=== PATIENT | female | born 1985 | race Caucasian/White ===

== ENCOUNTER 2019-08-12 18:47 | Emergency (ER) | payer BC, OTHER ==
[2019-08-12 18:51] VITALS: BP 144/101
--- OUTSIDE RECORDS SUMMARY | 2019-08-12 18:57 | XMS REPORT | Summary of Care ---
:1985 Author Organization [facility] Address [address] [facility] SAMMI Mcconnell [address] Care Team Providers Name Role Phone None, Naylor Primary Care Provider Unavailable Reason for Visit Reason Comments Medication Refill wants to discuss adderall dose Encounter Details Date Type Department Care Team Description 07/26/2019 Office Visit Matthew Dill Seth, Attention deficit hyperactivity disorder (ADHD), predominantly inattentive type (Primary Dx); Practice FELICIA Busby Encounter for initial prescription of contraceptive pills [address] [place], [place] [id number] [place] [address] [phone] Allergies No Known Allergiesdocumented as of this encounter (statuses as of 07/26/2019) Medications Medication Sig Dispensed Refills Start Date End Date Status VALACYCLOVIR HCL PO Take by 0 Active mouth. escitalopram TAKE 1 90 Tab 1 05/10/2019 Active (LEXAPRO) 10 MG TABLET BY Oral Tab MOUTH EVERY DAY buPROPion XL TAKE 1 90 Tab 3 05/31/2019 Active (WELLBUTRIN XL) 150 TABLET BY MG Oral TABLET SR MOUTH EVERY 24 HR 24 hour DAY tabletIndications: Anxiety and depression trazodone (DESYREL) TAKE 3 270 Tab 2 07/09/2019 Active 50 MG Oral TABLETS BY TabIndications: MOUTH EVERY Insomnia, NIGHT AT unspecified type BEDTIME amphetamine-dextroa Take 1 Cap 30 Cap 0 07/26/2019 Active mphetamine by mouth (ADDERALL XR) 30 MG EVERY Oral CAPSULE SR 24 MORNING. Max HRIndications: Daily Attention deficit Amount: 30 hyperactivity mg. disorder (ADHD), predominantly inattentive type Desogestrel-Ethinyl Take 1 Tab 28 Tab 2 07/26/2019 Active Estradiol (APRI) by mouth 0.15-30 MG-MCG Oral DAILY. TabIndications: Encounter for initial prescription of contraceptive pills nicotine Place 21 mg 0 Discontinued transdermal onto skin 0 (Therapy patch-daily DAILY. Completed) (NICODERM) 21 MG/24HR Transdermal PATCH 24 HR amphetamine-dextroa Take 1 Cap 30 Cap 0 06/14/2019 Discontinued mphetamine by mouth 0 (Reorder) (ADDERALL XR) 15 MG DAILY. Max Oral CAPSULE SR 24 Daily HRIndications: Amount: 15 Attention deficit mg. hyperactivity disorder (ADHD), predominantly inattentive type documented as of this encounter (statuses as of 07/26/2019) Active Problems Problem Noted Date Attention deficit hyperactivity disorder (ADHD), predominantly inattentive 09/2019 type Abnormal Pap smear of cervix 04/17/2019 Overview: Sees Dr. Molina. Anxiety and depression 04/17/2019 Insomnia 04/17/2019 documented as of this encounter (statuses as of 07/26/2019) Social History Tobacco Use Types Packs/Day Years Used Date Former Smoker Cigarettes 0 02/15/2007 - 02/15/2019 Smokeless Tobacco: Never Used Alcohol Use Drinks/Week oz/Week Comments Yes Alcohol Habits Answer Date Recorded How often do you have a drink containing alcohol? 2-4 times a month 2018 How many drinks containing alcohol do you have on a 5 or 6 04/17/2019 typical day when you are drinking? How often do you have six or more drinks on one Not asked occasion? Sex Assigned at Date Recorded Not on file documented as of this encounter Last Filed Vital Signs Vital Sign Reading Time Taken Comments Blood Pressure 118/78 07/26/2019 3:27 PM EST Pulse 80 07/26/2019 3:27 PM EST Temperature - - Respiratory Rate - - Oxygen Saturation 96% 07/26/2019 3:27 PM EST Inhaled Oxygen Concentration - - Weight 56.7 kg (125 lb) 07/26/2019 3:27 PM EST Height 172.7 cm (5' 8") 07/26/2019 3:27 PM EST Body Mass Index 19.01 07/26/2019 3:27 PM EST documented in this encounter Patient Instructions Patient InstructionsQi Ann FNP - 07/26/2019 3:20 PM ESTIncrease adderall to 30 mg daily Follow up in a month with Audrey Fisher NP To establish, for med refill and for physical and pap smear. Schedule for 40-60 minutes. documented in this encounter Progress Notes Qi Ann FNP - 07/26/2019 3:20 PM EST PATIENT: Jeny Dutton : 1985 DATE OF SERVICE: 07/26/2019 Chief Complaint Patient presents with ? Medication Refill wants to discuss adderall dose SUBJECTIVE: Jeny Dutton is a 33-y.o. female who is here for follow up of anxiety, depression and ADHD. She feels meds are all helping but may need higher dose of adderall. She tried a double dose and felt much more focused and organized. She denies any abuse or diversion. She would like to go back on oral contraceptive pills. She has taken in the past without problems.Having menses now. 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 Molina and was told tohave repeat in a year. Last pap reportedly normal. She would like to have next pap done here now and her oral contraceptive pills prescribed here. Patient Active Problem List Diagnosis Date Noted ? Attention deficit hyperactivity disorder (ADHD), predominantly inattentive type 07/26/2019 ? Abnormal Pap smear of cervix 04/17/[address] Molina. ? Anxiety and depression 04/17/2019 ? Insomnia 04/17/2019 Current Outpatient Medications Medication Sig ? amphetamine-dextroamphetamine (ADDERALL XR) 30 MG Oral CAPSULE SR 24 HR Take 1 Cap by mouth EVERY MORNING. Max Daily Amount: 30 mg. ? buPROPion XL (WELLBUTRIN XL) 150 MG Oral TABLET SR 24 HR 24 hour tablet TAKE 1 TABLET BY MOUTH EVERY DAY ? Desogestrel-Ethinyl Estradiol (APRI) 0.15-30 MG-MCG Oral Tab Take 1 Tab by mouth DAILY. ? escitalopram (LEXAPRO) 10 MG Oral Tab TAKE 1 TABLET BY MOUTH EVERY DAY ? trazodone (DESYREL) 50 MG Oral Tab TAKE 3 TABLETS BY MOUTH EVERY NIGHT AT BEDTIME ? VALACYCLOVIR HCL PO Take by mouth. No current facility-administered medications for this visit. OBJECTIVE: . BP 118/78 (BP Location: Left arm, Patient Position: Sitting) | Pulse 80 | Ht 5' 8" (1.727 m) | Wt 125 lb (56.7 kg) | SpO2 96% | BMI 19.01 kg/m she is alert and in no distress.Chest is clear, no wheezing or rales. Normal symmetric air entry throughout both lung herring. Heart RRR. ASSESSMENT: ICD-9-CM ICD-10-CM 1. Attention deficit hyperactivity disorder (ADHD), predominantly inattentive type 314.00 F90.0 amphetamine-dextroamphetamine (ADDERALL XR) 30 MG Oral CAPSULE SR 24 HR 2. Encounter for initial prescription of contraceptive pills V25.01 Z30.011 Desogestrel-Ethinyl Estradiol (APRI) 0.15-30 MG-MCG Oral Tab Patient Instructions Increase adderall to 30 mg daily Follow up in a month with Audrey Fisher NP To establish, for med refill and for physical and pap smear. Schedule for 40-60 minutes. Author: FELICIA Sim 07/26/2019 16:07 documented in this encounter Plan of Treatment Date Type Specialty Care Team Description 08/29/2019 Office Visit Family Practice Audrey Fisher FNP-C [address] [place] [address] [phone] Health Maintenance Due Date Last Done Comments DTaP/Tdap/Td Vaccines (1 - 09/18/1998 Tdap) PAP SMEAR 09/18/2008 INFLUENZA VACCINE (#1) 2019 DEPRESSION SCREENING 04/17/2020 04/17/2019, 04/17/2019 HEPATITIS A IMMUNIZATION Aged Out No longer eligible based SERIES on patient's age to complete this topic HPV IMMUNIZATION SERIES Aged Out No longer eligible based on patient's age to complete this topic MENINGOCOCCAL VACCINE IMM Aged Out No longer eligible based on patient's age to complete this topic PNEUMOCOCCAL 0-64 YRS Aged Out No longer eligible based on patient's age to complete this topic documented as of this encounter Goals Goal Patient Goal Associated Recent Patient-Stated? Author Type Problems Progress Depression Depression 24 No issac Ann (PHQ-9) (04/17/2019 FELICIA Busby total score < 5 3:08 PM EST) Note: This is an individualized treatment (depression) goal for Jeny Dutton: Displayed above is your goal for a depression screening (PHQ-9) score that would indicate good control of your depression. Keep a regular sleep schedule Lifestyle No Qi Ann FNP Note: This is an individualized lifestyle goal for Jeny Dutton: Please maintain a regular sleep schedule. This may help with some symptoms of depression. Take all prescribed medications as Self-management No Qi Ann FNP directed Note: This is an individualized self-management goal for Jeny Dutton: Please take all prescribed medications as directed. 1. Do not skip doses. If you cannot afford your medications, talk with your doctor. 2. Use a pill reminder system such as a pill box if needed. Your pharmacist can help you with this. 3. Contact your Pharmacy 5 days before your medication runs out. If you cannot take your medications for any reasons, talk with your doctor. 4. Please bring all of your medication bottles and inhalers (or a list of all your medications/inhalers) with you to every visit. Potential barriers to meeting all of your care plan goals will continue to be addressed on an ongoing basis. documented as of this encounter Results Not on filedocumented in this encounter Visit Diagnoses Diagnosis Attention deficit hyperactivity disorder (ADHD), predominantly inattentive type Encounter for initial prescription of contraceptive pills General counseling for prescription of oral contraceptives documented in this encounter Insurance Payer Benefit Plan / Subscriber ID Effective Dates Phone Address Type Group [facility] [id number] 2019-[facility] Blue t Cross/Blue Shield Guarantor Name Account Type Relation to Date of Phone Billing Patient Address Jeny Dutton Personal/Family 1985 [id number] ([address]) [address] [phone] [place], [place] (Work) [id number] documented as of this encounter
--- NOTE | 2019-08-12 18:59 | ED ---
Throat Pain/Nasal Congestion - HPI Summary HPI Summary: Patient complains of a broken molar on the lower left jaw 2 weeks ago, with new onset dental pain starting 3 days ago. Mild facial swelling to left lower jaw, pain with swallowing. Denies fever, cough, sore throat, CP, SOB, N/V/D, abdominal pain, change in urine, change in BM. Seen at [facility] earlier today , given prescription for clindamycin and Vicodin. Denies medical history. - History of Current Complaint Chief Complaint: EDDentalPain Time Seen by Provider: 08/12/19 18:57 Hx Obtained From: Patient Onset/Duration: Gradual Onset, Lasting Days Severity: Severe Associated Signs And Symptoms: Positive: Dysphagia Cough: None - Allergies/Home Medications Allergies/Adverse Reactions: Allergies Allergy/AdvReac Type Severity Reaction Status Date / Time No Known Allergies Allergy Verified 08/12/19 18:51 Home Medications: Home Medications Pumpkin Seed Extract/Soy Germ [Azo Bladder Control/Go-Le] 09/10/16 [History] ValACYclovir (*) [Valtrex 500 mg (*)] 500 09/10/16 [History] Lidocaine 2% VISCOUS* [Xylocaine 2% Viscous*] 15 ml SWISH SPIT Q6H PRN #1 btl [Rx] PMH/Surg Hx/FS Hx/Imm Hx Endocrine/Hematology History: Denies: Hx Diabetes, Hx Thyroid Disease Cardiovascular History: Denies: Hx Hypertension Respiratory History: Denies: Hx Asthma, Hx Chronic Obstructive Pulmonary Disease (COPD) GI History: Denies: Hx Ulcer History: Denies: Hx Dialysis Musculoskeletal History: Denies: Hx Gout Sensory History: Denies: Hx Eye Prosthesis Opthamlomology History: Denies: Hx Legally Blind EENT History: Denies: Hx Deafness Neurological History: Denies: Hx Dementia Infectious Disease History: No Infectious Disease History: Reports: History Other Infectious Disease - HPV herpes, being treated Denies: Hx Hepatitis, Traveled Outside the [place] in Last 30 Days - Social History Alcohol Use: Daily Substance Use Type: Reports: None Smoking Status (MU): Heavy Every Day Tobacco Smoker Review of Systems Constitutional: Negative Eyes: Negative Positive: Dental Pain Cardiovascular: Negative Respiratory: Negative Gastrointestinal: Negative Genitourinary: Negative Musculoskeletal: Negative Skin: Negative Neurological/Mental Status: Negative Psychological: Normal All Other Systems Reviewed And Are Negative: Yes Physical Exam Triage Information Reviewed: Yes Vital Signs On Initial Exam: Initial Vitals Temp Pulse Resp BP Pulse Ox 97.4 F 78 19 144/101 100 08/12/19 18:48 08/12/19 18:48 08/12/19 18:48 08/12/19 18:48 08/12/19 18:48 Vital Signs Reviewed: Yes Appearance: Positive: Well-Appearing Skin: Positive: Warm Head/Face: Positive: Other - Mild swelling to left side lower jaw, very minimal erythema. Full range of motion of jaw. Eyes: Positive: Normal ENT: Positive: Normal ENT inspection Dental: Positive: Gross Decay/Caries @, Dental Fracture @, Other - No evidence of apical abscess or fluctuance.. Negative: Abscess @, Cellulitis @ Neck: Positive: Supple Respiratory/Lung Sounds: Positive: Clear to Auscultation Cardiovascular: Positive: Normal Abdomen Description: Positive: Nontender Musculoskeletal: Positive: Normal Neurological: Positive: Normal Psychiatric: Positive: Normal AVPU Assessment: Alert - Crook Coma Scale Best Eye Response: 4 - Spontaneous Best Motor Response: 6 - Obeys Commands Best Verbal Response: 5 - Oriented Coma Scale Total: 15 Procedures - Sedation Patient Received Moderate/Deep Sedation with Procedure: No Diagnostics - Vital Signs Vital Signs Temp Pulse Resp BP Pulse Ox 08/12/19 18:48 97.4 F 78 19 144/101 100 - Laboratory Lab Statement: Any lab studies that have been ordered have been reviewed, and results considered in the medical decision making process. EENT Course/Dx - Course Course Of Treatment: Patient complains of a broken molar on the lower left jaw 2 weeks ago, with new onset dental pain starting 3 days ago. Mild facial swelling to left lower jaw, pain with swallowing. Denies fever, cough, sore throat, CP, SOB, N/V/D, abdominal pain, change in urine, change in BM. Seen at [facility] earlier today, given prescription for clindamycin and Vicodin. Denies medical history. Vital signs within normal limits. Patient already has prescription for clindamycin and Vicodin. Pain improved with viscous lidocaine and Toradol. - Diagnoses Provider Diagnoses: Pain, dental, Facial swelling Discharge ED - Sign-Out/Discharge Documenting (check all that apply): Patient Departure - Discharge Plan Condition: Stable Disposition: HOME Prescriptions: Lidocaine 2% VISCOUS* [Xylocaine 2% Viscous*] 15 ml SWISH SPIT Q6H PRN #1 btl PRN Reason: Pain - Moderate Patient Education Materials: Toothache (ED) Referrals: Qi Ann NP [Primary Care Provider] - Additional Instructions: Alternate ibuprofen 600 mg with Tylenol 650 mg every 3 hours in addition to taking Vicodin as directed. Use viscous lidocaine as directed if needed for breakthrough dental pain. Continue to take antibiotics as directed. Follow up with your dentist. - Billing Disposition and Condition Condition: STABLE Disposition: Home - Attestation Statements Provider Attestation: I was available for consult. This patient was seen by the SRIDHAR. The patient was not presented to, seen by, or examined by me. Carlos Manuel Conte MD
[2019-08-12] MEDS ORDERED: Ketorolac INJ* 30 MG/ML 1 ML VIAL IM ONE (19:07)
[2019-08-12] MEDS ORDERED: Lidocaine 2% VISCOUS* 15 ML UDC PO ONE (19:07)
== END 2019-08-12 20:21 | disposition home or self-care (01) ==
LOC: ED 18:47
DX: K08.89 Other specified disorders of teeth and supporting structures (principal); R22.0 Localized swelling, mass and lump, head; F17.200 Nicotine dependence, unspecified, uncomplicated
CPT/HCPCS: 96372; 99282; J1885